=== PATIENT | female | born 1990 | race Caucasian/White ===

== ENCOUNTER 2016-10-13 16:19 | Inpatient (IN) | payer BC ==
[~2016-10-13] VITALS: Ht 167.6 cm; Wt 75.9 kg
[2016-10-29 22:13] VITALS: BP 125/78; PULSE 85; TEMP 98.3
[2016-10-29 22:16] LABS: BASO % 0.3 % (0.0-2.0); EOS % 0.4 % (0-4.0); HEMATOCRIT 34.9 % (37.0-47.0); HEMOGLOBIN 11.8 g/dl (12.5-16.0); LYMPH # 2.3 (1.2-3.4); LYMPH % 23.2 % (20.0-51.0); MEAN CELL VOLUME 86 fl (80.0-100.0); MEAN CORPUSCULAR HEMOGLOBIN 29 pg (27.0-31.0); MEAN CORPUSCULAR HGB CONC 34 g/dl (33.0-37.0); MEAN PLATELET VOLUME 10.8 fl (7.4-10.4); MONO # 0.6 (0.1-0.6); MONO % 5.8 % (1.7-9.3); PLATELET COUNT 188 K/mm3 (130-400); RED BLOOD COUNT 4.04 M/mm3 (4.10-5.30)
[2016-10-29] MEDS ORDERED: PRENATAL1 TA7 PO (22:25)
[2016-10-29 22:30] VITALS: BP 125/75; PULSE 85; TEMP 98.3
[2016-10-29 23:00] VITALS: BP 122/76; PULSE 73
[2016-10-29 23:30] VITALS: BP 125/78; PULSE 82
[2016-10-30] VITALS (46 sets, daily range): BP systolic 97–149; BP diastolic 56–97; PULSE 20–101; TEMP 97.8–98.3
[2016-10-30] MEDS ORDERED: IBU800 M1 PO (17:27)
[2016-10-30] MEDS ORDERED: PERCOCET 325 MG1 TA2 PO (17:28)
[2016-10-31 00:30] VITALS: BP 127/83; PULSE 77; TEMP 98
[2016-10-31 07:21] LABS: BASO % 0.3 % (0.0-2.0); EOS % 0.2 % (0-4.0); GRAN # 8.6 (1.4-6.5); GRAN % 76.5 % (42.2-75.2); LYMPH # 1.9 (1.2-3.4); LYMPH % 16.5 % (20.0-51.0); MEAN CELL VOLUME 89 fl (80.0-100.0); MEAN CORPUSCULAR HGB CONC 33 g/dl (33.0-37.0); MEAN PLATELET VOLUME 10.8 fl (7.4-10.4); MONO # 0.7 (0.1-0.6); MONO % 6.1 % (1.7-9.3); PLATELET COUNT 160 K/mm3 (130-400); RED BLOOD COUNT 3.59 M/mm3 (4.10-5.30); REDCELL DISTRIBUTION WIDTH-CV 12.1 % (11.5-14.5); WHITE BLOOD COUNT 11.2 K/mm3 (4.8-10.8)
[2016-10-31 07:23] LABS: HEMATOCRIT 31.8 % (37.0-47.0); HEMOGLOBIN 10.5 g/dl (12.5-16.0); MEAN CORPUSCULAR HEMOGLOBIN 29 pg (27.0-31.0)
[2016-10-31 08:40] VITALS: BP 129/84; PULSE 66; TEMP 97.7
[2016-10-31 15:55] VITALS: BP 123/77; PULSE 101; TEMP 97.8
[2016-10-31 20:30] VITALS: BP 135/89; PULSE 81; TEMP 98.2
[2016-11-01 10:02] VITALS: BP 135/74; PULSE 75; TEMP 98.5
[2016-11-01] MEDS ORDERED: PERCOCET 325 MG1 TA2 PO (10:19)
== END 2016-11-01 12:45 | disposition home or self-care (01) | DRG 765 ==
LOC: LDR 10-29 07:07 → OB 10-30 17:45 → EDSTATUS 11-12 07:07 → LDRO 11-12 16:19
PROVIDERS: Obstetrics & Gynecology
PROC: 10D00Z1 Extraction of Products of Conception, Low, Open Approach (ICD-10-PCS; principal; 2016-10-30)
PROC: 3E033VJ Introduction of Other Hormone into Peripheral Vein, Percutaneous Approach (ICD-10-PCS; 2016-10-30)
DX: O36.5930 Maternal care for other known or suspected poor fetal growth, third trimester, not applicable or unspecified (principal); O36.0130 Maternal care for anti-D [Rh] antibodies, third trimester, not applicable or unspecified; O76 Abnormality in fetal heart rate and rhythm complicating labor and delivery; O69.81X0 Labor and delivery complicated by cord around neck, without compression, not applicable or unspecified; O99.334 Smoking (tobacco) complicating childbirth; F17.210 Nicotine dependence, cigarettes, uncomplicated; Z3A.39 39 weeks gestation of pregnancy; Z37.0 Single live birth
CPT/HCPCS: J0690; J1885; J2270; J2370; J2400; J2405; J2590; J2795; J7120